=== PATIENT | female | born 1990 | race American Indian/Alaskan Native ===

== ENCOUNTER 2017-10-14 17:30 | Emergency (ER) | payer OTHER ==
[~2017-10-14] VITALS: Ht 165.1 cm; Wt 98.4 kg
[~2017-10-14 17:30] MED LIST: DOCUSATE SODIU100 MG PO
[2017-10-14] MEDS ORDERED: PRENATABS FA T1 EACH (17:55)
== END 2017-10-15 00:13 | disposition home or self-care (01) ==
LOC: ER 17:30
DX: O26.891 Other specified pregnancy related conditions, first trimester (principal); K29.70 Gastritis, unspecified, without bleeding; Z34.81 Encounter for supervision of other normal pregnancy, first trimester

== ENCOUNTER 2018-02-05 10:57 | Emergency (ER) | payer OTHER ==
[~2018-02-05] VITALS: Ht 165.1 cm; Wt 99.8 kg
[~2018-02-05 10:57] MED LIST changes: +PRENATABS FA T1 EACH
== END 2018-02-05 21:15 | disposition home or self-care (01) ==
LOC: ER 10:57
DX: J21.0 Acute bronchiolitis due to respiratory syncytial virus (principal)

== ENCOUNTER 2018-03-13 09:31 | Emergency (ER) | payer OTHER ==
[~2018-03-13] VITALS: Ht 165.1 cm; Wt 93.0 kg
== END 2018-03-13 12:29 | disposition home or self-care (01) ==
LOC: ER 09:31
DX: K52.89 Other specified noninfective gastroenteritis and colitis (principal)

== ENCOUNTER → 2018-04-16 | Outpatient (CLI) | payer OTHER | END | disposition home or self-care (01) | LOC: NST 18:56 → LDR 04-17 02:19 | DX: Z34.83 Encounter for supervision of other normal pregnancy, third trimester (principal) ==

== ENCOUNTER 2018-04-17 01:36 | Inpatient (IN) | payer OTHER ==
[~2018-04-17] VITALS: Ht 165.1 cm; Wt 2.7 kg
== END 2018-04-20 18:10 | disposition home or self-care (01) | DRG 785 ==
LOC: LDR 01:36 → OB/GYN 10:36
PROVIDERS: ADMIT Obstetrics & Gynecology
PROC: 0UB70ZZ Excision of Bilateral Fallopian Tubes, Open Approach (ICD-10-PCS; 2018-04-17)
PROC: 4A1HXCZ Monitoring of Products of Conception, Cardiac Rate, External Approach (ICD-10-PCS; 2018-04-17)
PROC: 4A033R1 Measurement of Arterial Saturation, Peripheral, Percutaneous Approach (ICD-10-PCS; 2018-04-17)
PROC: 10D00Z1 Extraction of Products of Conception, Low, Open Approach (ICD-10-PCS; principal; 2018-04-17 11:15)
DX: O34.211 Maternal care for low transverse scar from previous cesarean delivery (principal); O75.82 Onset (spontaneous) of labor after 37 completed weeks of gestation but before 39 completed weeks gestation, with delivery by (planned) cesarean section; Z3A.37 37 weeks gestation of pregnancy; Z37.0 Single live birth; Z30.2 Encounter for sterilization

== ENCOUNTER 2019-04-14 09:01 | Emergency (ER) | payer OTHER ==
[~2019-04-14] VITALS: Ht 165.1 cm; Wt 99.8 kg
[2019-04-14] MEDS ORDERED: AMOX-CLAV 875-1 EACH PO (14:33)
[2019-04-14] MEDS ORDERED: IPRAT-ALBUT 0.5-3 ML IH (14:33)
[2019-04-14] MEDS ORDERED: DOLOGEN CAPLET1 EACH PO (14:33)
[2019-04-14] MEDS ORDERED: TUSNEL LIQUID178 ML PO (14:33)
== END 2019-04-14 14:42 | disposition home or self-care (01) ==
LOC: ER 09:01
DX: J06.9 Acute upper respiratory infection, unspecified (principal)